=== PATIENT | female | born 1960 | race Caucasian/White ===

== ENCOUNTER 2016-06-15 18:24 | Emergency (ER) | payer SELFPAY ==
[~2016-06-15] VITALS: Ht 167.6 cm; Wt 63.5 kg
[2016-06-15 18:32] VITALS: BP 145/98
== END 2016-06-16 03:37 | disposition home or self-care (01) ==
LOC: ER 18:28
DX: Z53.21 Procedure and treatment not carried out due to patient leaving prior to being seen by health care provider (principal)
CPT/HCPCS: A4606; Z7610